=== PATIENT | male | born 2005 | race Caucasian/White ===

== ENCOUNTER 2023-01-18 21:16 | Emergency (ER) | payer BC ==
[~2023-01-18] VITALS: Ht 182.9 cm; Wt 61.2 kg
[2023-01-18 21:58] LABS: MEAN CORPUSCULAR HEMOGLOBIN 29.7 uug (23.8-33.4); MEAN CORPUSCULAR HGB CONC 34 g/dL (32.5-36.3); RED BLOOD CELL COUNT(AUTO) 4.73 MIL/uL (4.06-5.63); WHITE BLOOD COUNT (AUTO) 3.9 K/uL (3.6-10.2)
[2023-01-18 22:01] LABS: BASOPHILS % (AUTO) 0.8 % (0.0-2.0); CALCIUM 8.7 mg/dL (8.5-10.1); CARBON DIOXIDE 29 mmol/L (21-32); CHLORIDE 106 mmol/L (98-107); CREATININE 0.7 mg/dL (0.6-1.3); DIFFERENTIAL COMMENT 0; EOSINOPHILS # (AUTO) 0.1 K/uL (0.0-0.7); EOSINOPHILS % (AUTO) 1.6 % (0.0-7.0); GLUCOSE 91 mg/dL (74-106); HEMATOCRIT 41.2 % (36.7-47.1); HEMOGLOBIN 14.1 g/dL (12.5-16.3); LYMPHOCYTES % (AUTO) 52.4 % (20.5-74.5); MEAN CORPUSCULAR VOLUME 87.2 fL (73.0-96.2); MONOCYTES # (AUTO) 0.5 K/uL (0.1-1.30); MONOCYTES % (AUTO) 13.1 % (0-11); NEUTROPHILS # (AUTO) 1.2 K/uL (1.8-8.9); NEUTROPHILS % (AUTO) 32.1 % (31.5-64.5); PLATELET COUNT (AUTO) 159 K/uL (152-348); POTASSIUM 4.3 mmol/L (3.5-5.1); RED CELL DISTRIBUTION WIDTH 12.9 % (12.1-16.2); SODIUM SERUM 141 mmol/L (136-145); UREA NITROGEN, BLOOD 20 mg/dL (7-18)
[2023-01-18 22:06] LABS: ALANINE AMINOTRANSFERASE 124 U/L (16-63); ALBUMIN 3.7 g/dL (3.4-5.0); ALKALINE PHOSPHATASE 138 U/L (50-136); ASPARTATE AMINOTRANSFERASE 53 U/L (15-37); BILIRUBIN,TOTAL 0.5 mg/dL (0.2-1.0); LIPASE 141 U/L (73-393); TOTAL PROTEIN, SERUM 7.1 g/dL (6.4-8.2)
[2023-01-18 22:34] VITALS: BP 120/67; O2SAT 97
== END 2023-01-18 22:35 | disposition home or self-care (01) ==
LOC: ER 21:16
DX: R74.01 Elevation of levels of liver transaminase levels (principal); R07.89 Other chest pain; Z88.8 Allergy status to other drugs, medicaments and biological substances
CPT/HCPCS: 36415; 71045; 83690; 85025; A4663

== ENCOUNTER → 2024-06-22 | Emergency (ER) | payer BC ==
[~2024-06-22] VITALS: Ht 182.9 cm; Wt 65.3 kg
[~2024-06-22] MED LIST: ACETAMINOPHEN 500 MG TABLET ONE; AZIT250T13 PO; AZITHROMYCIN 250 MG TABLET ONE; CEFTRIAXONE /D5W 50ML IVPB **ER PYXIS IV ONE; CEFU500T66 PO; KETOROLAC TROMETHAMINE 30 MG INJ ONE
[2024-06-22 14:05] VITALS: O2SAT 100
[2024-06-22] MEDS: IV NORMAL SALINE 1000 ML BAG IV ONE (14:31)
[2024-06-22 14:34] LABS: BASOPHILS % (AUTO) 0.2 % (0.0-2.0); HEMATOCRIT 42.8 % (36.7-47.1); HEMOGLOBIN 14.8 g/dL (12.5-16.3); LYMPHOCYTES # (AUTO) 0.8 K/uL (0.8-4.8); LYMPHOCYTES % (AUTO) 11.6 % (20.5-74.5); MEAN CORPUSCULAR HEMOGLOBIN 30.5 uug (23.8-33.4); MEAN CORPUSCULAR HGB CONC 35 g/dL (32.5-36.3); MEAN CORPUSCULAR VOLUME 88.2 fL (73.0-96.2); MONOCYTES # (AUTO) 0.7 K/uL (0.1-1.30); MONOCYTES % (AUTO) 10.7 % (0-11); NEUTROPHILS # (AUTO) 5.1 K/uL (1.8-8.9); NEUTROPHILS % (AUTO) 77.5 % (31.5-64.5); PLATELET COUNT (AUTO) 129 K/uL (152-348); RED BLOOD CELL COUNT(AUTO) 4.85 MIL/uL (4.06-5.63); RED CELL DISTRIBUTION WIDTH 12.6 % (12.1-16.2); WHITE BLOOD COUNT (AUTO) 6.6 K/uL (3.6-10.2)
[2024-06-22 14:40] LABS: DIFFERENTIAL COMMENT 1
[2024-06-22 14:42] LABS: CALCIUM 9.1 mg/dL (8.5-10.1); CREATININE 0.9 mg/dL (0.6-1.3); POTASSIUM 3.9 mmol/L (3.5-5.1)
[2024-06-22] MEDS: ACETAMINOPHEN 500 MG TABLET PO ONE (14:44)
[2024-06-22] MEDS: CEFTRIAXONE 2 G in IV DEXTROSE 5% 100 ML IV ONE (16:01)
[2024-06-22 16:04] VITALS: TEMP 100.5
[2024-06-22] MEDS: KETOROLAC TROMETHAMINE 30 MG INJ IVP ONE (16:51)
[2024-06-22] MEDS: AZITHROMYCIN 250 MG TABLET PO ONE (17:20)
== END | disposition home or self-care (01) ==
LOC: ER 13:55
DX: J18.1 Lobar pneumonia, unspecified organism (principal); F17.200 Nicotine dependence, unspecified, uncomplicated; Z20.822 Contact with and (suspected) exposure to COVID-19; Z88.6 Allergy status to analgesic agent
CPT/HCPCS: 99285; 96365; 71250; 71045; 96361; 96375; 87426; 87804 ×2; 80048; 85025; 87040 ×2; 36415; 83605; J1885; J0696 ×2; J7040; A4606; A4663; A9150; Q0144